=== PATIENT | female | born 1985 | race Native Hawaiian/Other Pacific Islander ===

== ENCOUNTER 2022-01-26 16:54 | Inpatient (IN) | payer MEDICAID, SELFPAY ==
[2022-01-26 17:10] VITALS: PULSE 77; O2SAT 99
[2022-01-26 17:12] VITALS: BP 131/66; PULSE 74
[2022-01-26 17:14] VITALS: RESP 14; TEMP 36.4
--- NOTE | 2022-01-26 17:53 | P.OBHP_ITS ---
OB - H&P: HPI Labor/Induction History of Present Illness Date Seen: 01/26/22 Chief Complaint: The patient is a 36 year old 2 para 1 at 40+1 weeks gestation by 12 week US, who presents with IOL for AMA and post-dates. She reports no contractions, no LOF. Baby has been active. has been otherwise uncomplicated. Chief complaint: Induction/needs sign language interpreter Indications for induction: other (AMA) Narrative: Felicitas Liao is a 37 year old female at 40+1 weeks gestation here for IOL for post dates and AMA. has been otherwise uncomplicated. She is GBS positive, blood type O+, rubella immune, HIV, Hep B negative. History of Present Dating criteria: based on 1st trimester US only care: good care complications comment: AMA Medical complications: none Labs Blood type: O (+) positive Rubella: immune RPR/VDLR: nonreactive GBS status: positive HBsAG: negative OB - H&P: Exam Physical Exam: Vital signs: Temp Pulse Resp BP Pulse Ox 97.5 F L 74 14 131/66 99 01/26/22 17:14 01/26/22 17:12 01/26/22 17:14 01/26/22 17:12 01/26/22 17:10 Constitutional: Constitutional: no acute distress Routine HEENT Exam: Head: Present atraumatic Eye: Present EOMI and normal appearance Routine Neck Exam: Neck: Present full ROM Routine Respiratory Exam: Respiratory: Present CTA bilaterally Routine Cardiovascular Exam: Cardiovascular: RRR Comments: no murmur Detailed Labor and Delivery Exam: Patient Gravid: yes Dilation (cm): 1 Effacement (%): 20 Cervix position: posterior Consistency: soft Cervical ripeness score: 3 Comments: Cook catheter placed with 60 mL in both the intrauterine and intravaginal balloons. Fetus (Single): Station: -3 Routine Neurological Exam: Present alert and oriented X3 OB - Problem Based A/P Additional Plan (1) Term : Status: Acute (2) AMA (advanced maternal age) multigravida 35+: Status: Acute Plan Antibiotics for +GBS Delivery/Labor/Induction Plan Plan: induction Induction method: Intracervical balloon catheter (with low dose pitocin at midnight. )
[2022-01-26 18:01] VITALS: BMI 34.9
[2022-01-26 18:11] LABS: SARS PCR* Negative SARS-CoV-2 (Negative)
[2022-01-26 19:18] VITALS: BP 113/60; PULSE 72; RESP 16; TEMP 36.7
[2022-01-27] VITALS (114 sets, daily range): BP systolic 90–185; BP diastolic 50–125; PULSE 66–122; RESP 16–18; TEMP 36.4–36.8; O2SAT 97–99
[2022-01-27] MEDS: LACTATED RINGERS 1000 ML 1,000 ML 125 ML IV ×3 (00:06→18:39)
[2022-01-27] MEDS: OXYTOCIN 30 unit/500 ML in NS 30 UNIT/500 ML BAG IVPB (00:07)
[2022-01-27] MEDS: AMPICILLIN 2 GM in 0.9 % SODIUM CHLORIDE Mini-bag 100 ML IVPB (03:40)
[2022-01-27 04:21] LABS: Basophils Absolute Auto 0.02 K/uL (0.00-0.30); Basophils Percent Auto 0.2 % (0.0-3.0); Eosinophils Absolute Auto 0.05 K/uL (0.00-0.50); Eosinophils Percent Auto 0.6 % (0.0-7.0); Hematocrit 37.9 % (33.0-51.0); Hemoglobin* 13.3 gm/dL (12.0-16.0); Immature Granulocytes Abs Auto 0.02 K/uL (0.00-0.30); Immature Granulocytes Pct Auto 0.2 %; Lymphocytes Percent Auto 12.2 % (20-44); Mean Corpuscular HGB Conc 35 gm/dL (32-36); Mean Corpuscular Hemoglobin 31 pg (26-34); Mean Corpuscular Volume 89 fL (80-100); Monocytes Percent Auto 8.2 % (0.0-11.0); Neutrophils Percent Auto 78.6 % (42.0-72.0); Platelet Count* 183 K/uL (140-440); RDW Coefficient of Variation % 13.2 % (11.5-15.5); Red Blood Count 4.26 m/uL (4.00-5.20); White Blood Count* 8.55 K/uL (4.50-11.00)
[2022-01-27 04:25] LABS: Slide Review Reflex No
[2022-01-27] MEDS: AMPICILLIN 1 GM in 0.9 % SODIUM CHLORIDE Mini-bag 100 ML IVPB ×4 (07:26→19:25)
--- NOTE | 2022-01-27 07:43 | PM.OBPNL ---
Subjective Date Seen: 01/27/22 Narrative: Patient is doing well, cook catheter fell out overnight. Pitocin stopped due to staffing, but patient continues to contract every 4-5 minutes. She is now requesting an epidural. She underwent AROM with return of scant fluid and bloody show. Objective Vital Signs: Last Vital Signs Temp 97.5 F L 01/27/22 00:10 Pulse 80 01/27/22 07:40 Resp 16 01/27/22 00:10 BP 121/62 01/27/22 07:40 Pulse Ox 99 01/26/22 17:10 Pelvic Exam Dilation (cm): 7 Effacement (%): 90 Station: -1 Contractions Monitor mode: External Contraction Frequency: 5 minutes Contraction pattern: Regular Contraction intensity: Moderate Assessment Assessment: induction ongoing Station: -1 Amniotic Membrane Status: AROM Status: Category l Heart Rate Baseline: 145 Chcf Variability: Moderate (6-25) Monitor Accelerations: Present Monitor Decelerations: None Plan Plan: AROM as above, if labor does not progress, will restart pitocin. Continue abx for GBS+ Anticipate .
[2022-01-27] MEDS: ROPIVACAINE 0.2% 100 ml 100 ML 12 MG EPIDURAL ×2 (08:50→16:49)
[2022-01-27] MEDS: PHENYLEPHRINE 100 MCG/ML SYRINGE IVP ×4 (09:01→11:58)
--- NOTE | 2022-01-27 09:20 | PM.ANBPRC ---
[facility] Medical History (Updated 01/26/22 @ 18:01 by Ekta Cabrera MD) AMA (advanced maternal age) multigravida 35+ Social History Smoking Status: Never smoker Meds Home Medications and Allergies Home Medications Medication Instructions Recorded Confirmed Type [id number] 3-fat com #1 27 cap PO DAILY 01/26/22 History mg-1 mg-300 mg capsule Results Labs Labs: Laboratory Results - last 24 hr 01/26/22 01/27/22 01/27/22 17:02 04:10 04:10 WBC 8.55 RBC 4.26 Hgb 13.3 Hct 37.9 MCV 89 MCH 31 MCHC 35 RDW Coeff of Julio 13.2 Plt Count 183 Neut % (Auto) 78.6 H Lymph % (Auto) 12.2 L Mathews % (Auto) 8.2 Eos % (Auto) 0.6 Baso % (Auto) 0.2 Neut # (Auto) 6.70 Lymph # (Auto) 1.00 Mathews # (Auto) 0.70 Eos # (Auto) 0.05 Baso # (Auto) 0.02 Abs Immat Gran (auto) 0.02 Imm/Tot Granulo (auto) 0.2 SARS-CoV-2 (PCR) Negative SARS-CoV-2 Blood Type O Positive Antibody Screen NEGATIVE Vital Signs Vital Signs: Last Vital Signs Temp 97.7 F 01/27/22 08:24 Pulse 81 01/27/22 09:19 Resp 18 01/27/22 08:24 BP 101/57 L 01/27/22 09:19 Pulse Ox 98 01/27/22 08:59 Weight: 95.254 kg Height: 165.1 cm Anesthesia Procedures Epidural Insertion Patient Location: OB Start Time: 08:00 Stop Time: 09:00 Start Date: 01/27/22 Stop Date: 01/27/22 Reason for Block: procedure for pain Patient Position: sitting Performed By: Dong Freire Preanesthetic Checklist: IV checked, risks and benefits discussed, surgical consent, monitors and equipment checked, pre-op evaluation, timeout performed and anesthesia consent Prep: chlorhexidine gluconate Monitoring: blood pressure monitoring, continuous pulse oximetry and heart rate Approach: midline Vertebral Space: lumbar (1-5) Epidural Technique: CATIE saline Needle Type: Tuohy needle Injection Technique: continuous catheter Needle gauge: 17 Needle Length (cm): 10 cm Needle Insertion Depth (cm): 6 Catheter Gauge: 19 Catheter Type: multi-orifice Catheter at skin depth (cm): 12 Test Dose Result: negative and lidocaine 1.5% with epinephrine 1 to 200,000
[2022-01-27] MEDS: ePHEDrine sulfate 5 MG/ML inj 10 MG IVP ×2 (09:32→10:32)
[2022-01-27] MEDS: LACTATED RINGERS 1000 ML 1,000 ML 1125 ML IV (12:29)
[2022-01-27] MEDS: LACTATED RINGERS 1000 ML 1,000 ML 325 ML IV (14:27)
--- NOTE | 2022-01-27 14:40 | P.OBPN_ITS ---
Subjective Date Seen: 01/27/22 Narrative: Felicitas is a at 40+2 for IOL for AMA. She was started on pitocin this morning, but it was stopped around noon due to recurrent variable decelerations. Because of ongoing variable vs late decelerations, an IUPC and FSE were placed to better characterize her labor pattern. She is comfortable with epidural and continues to have clear fluid. HR baseline has increased to 160 bpm, no maternal fever. IV fluid bolus given. Objective Vital Signs: Last Vital Signs Temp 98 F 01/27/22 13:41 Pulse 86 01/27/22 14:27 Resp 16 01/27/22 13:41 BP 98/50 L 01/27/22 14:27 Pulse Ox 98 01/27/22 08:59 Pelvic Exam Dilation (cm): 8 Effacement (%): 90 Station: -1 Contractions Monitor mode: Internal Contraction Frequency: 6 minutes Contraction pattern: Regular Contraction intensity: Strong/Firm Pitocin Rate (mU/min): 1 Assessment Assessment: induction ongoing Station: -1 Amniotic Membrane Status: AROM Status: Category l Heart Rate Baseline: 160 [place] Supervisor Variability: Minimal (3-5) Monitor Accelerations: Present Monitor Decelerations: Variable Plan Plan: Continue pitocin augmentation as able while monitoring heart rate. Continue abx for GBS.
[2022-01-27] MEDS: LIDOCAINE 1% MDV 20 ML INJECTION (21:50)
--- NOTE | 2022-01-27 22:10 | PM.OBPRCVD ---
Procedure Procedure Done: Global Events: AMA Intrapartal Events: Prolonged Labor >20 Hrs and Prolonged 2nd Stage >2.5 Hrs Induction method: Intracervical balloon catheter Delivery augmentation: rupture of membranes and pitocin Delivery monitor: external FHT, internal FHT and internal uterine Route of delivery: Laceration description: Vaginal - 2nd Degree Delivery repair: Vicryl Estimated blood loss (mL): 250 Anesthesia type: Epidural Narrative: The patient is a 36 year-old admitted on 01/26/2022 at 40 Weeks, 1 Days gestation for IOL for AMA.? Cervical exam on admission was 1 cm/20 % effaced/-3 station with membranes intact in vertex presentation.? Contractions were absent.?She underwent WISETIVI catheter placement at 1745. Catheter fall out spontaneously at 0400 on 01/27/22. heart rate demonstrated baseline 140 bpm with moderate variability, + accelerations, - decelerations; a category 1 tracing.? AROM occurred at 0734 on 01/27/22 with clear fluid. ? Labor Analgesia:? Epidural, although this was turned off after 1.5 hours of pushing. ? Pitocin:? yes ? Labor onset:? 0600 on 01/27/22 ? Complete:? 1855 ? Pushing:? 1855 ? heart tones during second stage were category 2. ? At 2143 a viable male infant delivered in vertex presentation over intact perineum via spontaneous vaginal delivery.? Infant was placed on maternal abdomen.? Cord was clamped and cut after a 30-60 second delay.? Nose and mouth were bulb suctioned.? weight pending.? 8 at 1 minute and 9 at 5 minutes.? Shoulder dystocia: no.? Nuchal cord: no. ? Placenta delivered spontaneously and complete at 214 with a 3 vessel cord. ? Mother and were stable after delivery. ? Lacerations:? 2nd degree vaginal, repaired with 2-0 vycryl. ? Blood loss: 50 mL. Blood loss measurement type: 250 ? Sponge and needles counts are correct. [place] Infant Gender: Male presentation: vertex Placental Delivery Description: Spontaneous Cord Description: 3 Vessels OB Vag Delivery Procedures Additional Procedures Laceration Repair: Yes
[2022-01-28 00:20] VITALS: BP 112/69; PULSE 87; RESP 16; TEMP 36.6; O2SAT 97
[2022-01-28 03:30] VITALS: BP 97/59; PULSE 79; RESP 16; TEMP 36.8; O2SAT 98
--- NOTE | 2022-01-28 07:50 | PM.OBPNVD1 ---
OB - PN:Subj Subjective Date Seen: 01/28/22 Patient comments OB post-: no complaints, pain well controlled and tolerating diet infant status: and doing well feeding status: exclusively OB - PN: Obj Exam Physical Exam: Vital signs: Temp Pulse Resp BP Pulse Ox O2 Del Method 98.2 F 79 16 97/59 L 98 01/28/22 03:30 01/28/22 03:30 01/28/22 03:30 01/28/22 03:30 01/28/22 03:30 01/28/22 03:30 Constitutional: Constitutional: no acute distress Detailed Abdominal Exam: Comments: Soft and non tender. Uterus firm 1 above umbilicus. OB - PN: A/P Vaginal Delivery Assessment and Plan (1) Term : Status: Acute (2) AMA (advanced maternal age) multigravida 35+: Status: Acute Plan day: 1 Plan: routine care
[2022-01-28 07:53] LABS: Hemoglobin* 11.4 gm/dL (12.0-16.0)
[2022-01-28 08:03] VITALS: BP 97/62; PULSE 74; RESP 16; TEMP 36.6; O2SAT 97
--- NOTE | 2022-01-28 10:29 | PC.NURSE ---
Met with mom and baby for consult with awning hanger helper (45 minutes). With verbal coaching to support her breast in the C hold and point her nipple to baby's nose mom was able to latch baby comfortably to the left and he nursed 10 - 15 minutes. In both the cross cradle and football hold we were unsuccessful in getting him to latch on the right, also tried a nipple shield. Mom to attempt again in 2 - 3 hours and encouraged her to call for assistance if needed.
[2022-01-28] MEDS: DOCUSATE SODIUM 100 MG CAPSULE PO (10:31)
[2022-01-28] MEDS: IBUPROFEN 600 MG TABLET PO (10:31)
[2022-01-28 11:25] VITALS: BP 100/63; PULSE 77; RESP 18; TEMP 36.8; O2SAT 96
[2022-01-28 16:00] VITALS: BP 97/64; PULSE 77; RESP 18; TEMP 36.5
[2022-01-28 20:02] VITALS: BP 99/66; PULSE 64; RESP 16; TEMP 36.8; O2SAT 98
[2022-01-29] VITALS: BP 112/76; RESP 16; TEMP 36.9; O2SAT 98
[2022-01-29] MEDS: DOCUSATE SODIUM 100 MG CAPSULE PO (08:48)
[2022-01-29] MEDS: IBUPROFEN 600 MG TABLET PO (08:48)
[2022-01-29 08:50] VITALS: BP 107/73; PULSE 63; RESP 16; TEMP 36.4
--- NOTE | 2022-01-29 08:53 | PM.OBDSVD1 ---
DS: Providers Provider Time Seen by Provider: 08:54 Date Seen: 01/29/22 Date of admission: 01/26/22 16:54 Primary care physician: Jina Maravilla MD Admitting Clinician: Ekta Cabrera MD Attending Physician on discharge: Marquez Rosario Date of Discharge: 01/29/22 DS: Diagnosis Discharge Diagnosis (1) (normal spontaneous vaginal delivery): Status: Acute (2) AMA (advanced maternal age) multigravida 35+: Status: Acute (3) Term : Status: Acute Exam Const: Vital Signs, click to edit/add: Vital Signs - 24 hr 01/28/22 11:25 01/28/22 16:00 01/28/22 20:02 Temperature 98.3 F 97.7 F 98.3 F Pulse Rate [Pulse Oximeter] 77 77 64 Respiratory Rate 18 18 16 Blood Pressure [Ri ght Arm] 100/63 97/64 99/66 Pulse Oximetry 96 98 Oxygen Delivery Me thod Room Air Room Air Room Air 01/29/22 00:00 Temperature 98.5 F Pulse Rate [Pulse Oximeter] Respiratory Rate 16 Blood Pressure [Ri ght Arm] 112/76 Pulse Oximetry 98 Oxygen Delivery Me thod Room Air Documenting provider has reviewed patient's vital signs: yes Common normals: no apparent distress General appearance: cooperative, comfortable, well kempt and well developed HENMT: Common normals: normocephalic, head/scalp atraumatic and hearing grossly normal bilaterally Head and scalp: normocephalic and atraumatic Lymph: Lymphatic: no lymphadenopathy noted Chest: Common normals: inspection of chest normal and palpation of chest normal Resp: Common normals: normal respiratory effort, no retractions and clear to auscultation bilaterally Effort & inspection: able to speak in complete sentences Auscultation: clear to auscultation bilaterally Cardio: Common normals: regular rate and regular rhythm Rate: regular rate Rhythm: regular rhythm GI: Common normals: Normal to inspection, nondistended, normoactive bowel sounds present and soft to palpation Palpation: soft : Uterus: 1/U and firm Manual OB Exam: deferred Extremity: Common normals: normal to inspection, full ROM and no pedal edema Psych: Common normals: mental status grossly normal, thought process normal, cooperative and affect normal Appearance: well kempt Thought process: normal thought process Skin: Common normals: no rashes or lesions noted General skin exam: no rashes or lesions noted OB - DS: Summary Hospital Course Hospital Course: The patient is a 37 year old G 2 P 1 at 40w3d weeks gestation that was admitted to the Center on 01/26/22 for IOL for AMA. She had an uncomplicated vaginal delivery. She delivered a viable male infant. She is breast feeding. the patient has done well. Peripartum Data Infant delivery method: Vaginal complications: none [place] Gender: Male Infant Discharge Plan: Home Status at Discharge Functional status at discharge: independent ambulation Overall status at discharge: patient is back to baseline Time Spent with Patient Time attestation: Total time spent providing and/or coordinating discharge services: Time spent: Less than 30 minutes Discharge Plan Discharge Disposition: Home, Self-Care Date of Admission: 01/26/22 16:54 Attending Provider on Discharge: Radha Reed Primary Care Provider: Jina Maravilla Condition: Stable Anticipated Discharge Date/Time: 01/29/22 08:51 Discharge Medications: Continued [id number] 3-fat com #1 27-1-300 mg capsule 1 cap PO DAILY Discharge Orders: Discharge Order (Routine); Ordered 01/29/22 Ordered By: Radha Reed Patient Education: OB Vaginal/Breast Feeding Activity Level: Activity as Tolerated Discharge Diet: Regular Follow Up Appointments: Jina Maravilla MD [Primary Care Provider] - Ekta Cabrera MD [Staff Physician] - (6 weeks ) Forms: [employer] Info Instructions
== END 2022-01-29 11:00 | disposition home or self-care (01) | DRG 807 ==
PROVIDERS: Admitting Provider Family Medicine; PCP Family Medicine; Visit Provider Family Medicine
DX: O48.0 Post-term pregnancy (principal); Z37.0 Single live birth; O99.824 Streptococcus B carrier state complicating childbirth; O63.0 Prolonged first stage (of labor); O63.1 Prolonged second stage (of labor); O70.1 Second degree perineal laceration during delivery; Z3A.40 40 weeks gestation of pregnancy
CPT/HCPCS: 01967; 36415; 59200; 85018; 85025; 86850; 86900; 86901; 87635; A9270; C1726; J0290; J2370; J2795; J7120; S0020